=== PATIENT | female | born 2005 | race Caucasian/White ===

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

== ENCOUNTER 2024-11-02 08:39 | Day surgery (SDC) | payer BC ==
[~2024-11-02 08:39] MED LIST: Albuterol 0.083% 2.5 MG/3 ML Neb Soln NEB PRN; Midazolam 1 MG/ML 2 ML SDV ONE; Naloxone 0.4 MG/ML SDV IVPUSH PRN; Ondansetron 4 MG/2 ML SDV IVPUSH PRN; Propofol 200 MG/20 ML SDV ONE; Ropivacaine 0.5% 5 MG/ML 30 ML SDV ONE; fentaNYL 100 MCG/2 ML SDV ONE; fentaNYL 50 MCG/ML SDV IVPUSH PRN; propofoL 500 MG/50 ML 50 ML ONE
[2024-11-02] MEDS: Lactated Ringers 1,000 ML IV SCH (09:15)
[2024-11-02] MEDS ORDERED: Ketamine HCL/NACL, ISO-OSM 50 MG/5 ML Syringe ONE (09:34)
[2024-11-02] MEDS ORDERED: Ondansetron 4 MG/2 ML SDV ONE (09:45)
[2024-11-02] MEDS ORDERED: Dexamethasone 4 MG/ML 5 ML MDV ONE (09:45)
[2024-11-02] MEDS ORDERED: propofoL 500 MG/50 ML 50 ML ONE (10:12)
[2024-11-02] MEDS ORDERED: Ketorolac 30 MG/ML SDV ONE (10:21)
[2024-11-02 12:17] VITALS: PULSE 64
[2024-11-02 12:18] VITALS: BP 91/44
== END 2024-11-02 11:50 | disposition home or self-care (01) ==
LOC: MW.SDS 08:39
PROVIDERS: ATTEND Obstetrics & Gynecology
DX: N83.8 Other noninflammatory disorders of ovary, fallopian tube and broad ligament (principal); Z87.891 Personal history of nicotine dependence; Z79.899 Other long term (current) drug therapy
CPT/HCPCS: 58662; 64488; J0665; J1100; J1885; J2003; J2250; J2405; J2704; J2795; J3010; J7120; 00840; J3490